=== PATIENT | female | born 1985 | race Caucasian/White ===

== ENCOUNTER 2019-01-20 13:46 | Emergency (ER) | payer OTHER ==
[~2019-01-20] VITALS: Ht 165.1 cm; Wt 75.0 kg
[2019-01-20] MEDS ORDERED: ondansetron/PF 4mg/2ml inj IV ONE (14:05)
[2019-01-20] MEDS ORDERED: normal saline 1000ML IV soln IVB ONE ×2 (14:05→15:55)
[2019-01-20] MEDS ORDERED: ketorolac trometh. 30mg/ml inj. IV ONE (14:05)
[2019-01-20] MEDS ORDERED: morphine 4 MG/ML inj SYRINge IV ONE (14:20)
[2019-01-20 14:22] LABS: BASOPHILS % (AUTO) 0.2 % (0-1); EOSINOPHILS % (AUTO) 0.2 % (0-6); HEMATOCRIT 38.3 % (35.0-45.0); LYMPHOCYTES % (AUTO) 6.1 % (21-51); MEAN CORPUSCULAR HEMOGLOBIN 30.4 PG (27.0-31.0); MEAN CORPUSCULAR HGB CONC 33.8 g/dL (33.0-36.5); MONOCYTES # (AUTO) 1.1 X10'3 (0-0.9); MONOCYTES % (AUTO) 6.7 % (2-12); NEUTROPHILS # (AUTO) 14.7 X10'3 (1.8-7.7); NEUTROPHILS % (AUTO) 86.8 % (42-75); PLATELET COUNT 187 X10'3 (140-440); RED BLOOD COUNT 4.26 X10'6 (4.20-5.60); RED CELL DISTRIBUTION WIDTH 12.6 % (11.5-14.5); WHITE BLOOD COUNT 16.9 X10'3 (4.5-11.0)
[2019-01-20 14:35] LABS: PARTIAL THROMBOPLASTIN TIME 35 SECONDS (22-32)
[2019-01-20 14:45] LABS: ALANINE AMINOTRANSFERASE 18 U/L (12-78); ALBUMIN 3.7 G/DL (3.4-5.0); ALBUMIN/GLOBULIN RATIO 0.9 (1.1-1.5); ALKALINE PHOSPHATASE 73 IU/L (46-116); ANION GAP 12 (8-16); ASPARTATE AMINO TRANSFERASE 15 U/L (10-37); BILIRUBIN,TOTAL 1.4 MG/DL (0.1-1.0); BLOOD UREA NITROGEN 7 MG/DL (7-18); BUN/CREATININE RATIO 7.9 (6.6-38.0); CALCIUM 9.2 MG/DL (8.5-10.1); CHLORIDE 104 MMOL/L (99-107); CREATININE 0.89 MG/DL (0.40-0.90); GLUCOSE 107 MG/DL (70-104); SODIUM 139 MMOL/L (135-145); TOTAL CARBON DIOXIDE 23.5 MMOL/L (24-32); eGFR 74 ML/MIN
[2019-01-20 14:51] LABS: POTASSIUM 3.5 MMOL/L (3.5-5.1)
[2019-01-20 15:16] LABS: CLARITY,URINE CLEAR (Clear); COLOR,URINE YELLOW (Yellow); GLUCOSE, URINE NEGATIVE (Neg); KETONES,URINE 15 mg/dl (Neg); LEUKOCYTE ESTERASE ,URINE LARGE (Neg); NITRITES, URINE POSITIVE (Neg); OCCULT BLOOD,URINE LARGE (Neg); PROTEIN,URINE TRACE mg/dl (Neg); UROBILINOGEN,URINE 0.2 E.U/dL (0.2-1.0)
[2019-01-20 15:24] LABS: UA COLLECTION TYPE CLN CATCH MIDSTREAM
[2019-01-20 15:25] LABS: BACTERIA,URINE 2+ /HPF (Neg); MUCUS STRANDS FEW /LPF (Neg); SQUAMOUS EPITHELIAL CELL,UR MODERATE /LPF (FEW)
[2019-01-20 15:50] LABS: URINE HCG NEGATIVE (NEG)
[2019-01-20] MEDS ORDERED: CefTRIAXone 2gm/D5W 50ml 50 ML IV ONE (15:55)
[2019-01-20 16:15] VITALS: BP 102/54
[2019-01-20] MEDS ORDERED: AMOX-422 PO (16:29)
[2019-01-20] MEDS ORDERED: HYDROcodone/acetaminophen 10/325mg tab PO ONE (16:35)
[2019-01-20] MEDS ORDERED: ONDA4TAB6 PO (16:49)
== END 2019-01-20 17:00 | disposition home or self-care (01) ==
LOC: ER 13:47
DX: N39.0 Urinary tract infection, site not specified (principal); R11.2 Nausea with vomiting, unspecified; Z79.2 Long term (current) use of antibiotics
CPT/HCPCS: 36415; 74176; 80053; 81001; 81025; 83605; 84145; 85025; 85610; 85730; 87040; 87077; 87088; 87186; 96361; 96365; 96375; 99284; J0696; J1885; J2270; J2405; J7030

== ENCOUNTER 2020-12-23 07:06 | Emergency (ER) | payer BC, OTHER ==
[~2020-12-23] VITALS: Ht 165.1 cm; Wt 77.3 kg
[~2020-12-23 07:06] MED LIST: ONDA4TAB6 PO
[2020-12-23] MEDS ORDERED: normal saline 1000ml 1,000 ML IV ONE (07:55)
[2020-12-23] MEDS ORDERED: ketorolac trometh. 30mg/ml inj. IV ONE (07:55)
[2020-12-23] MEDS ORDERED: ketorolac tromethamine 15mg/ml inj. IV ONE (08:00)
--- NOTE | 2020-12-23 08:31 | NUR ---
fresh foods technician at bedside.
[2020-12-23 08:50] LABS: BASOPHILS % (AUTO) 0.8 % (0-1); EOSINOPHILS # (AUTO) 0.3 X10'3 (0-0.9); EOSINOPHILS % (AUTO) 4.6 % (0-6); HEMATOCRIT 38.3 % (35.0-45.0); HEMOGLOBIN 12.6 g/dl (12.0-16.0); LYMPHOCYTES # (AUTO) 2.9 X10'3 (1.1-4.8); LYMPHOCYTES % (AUTO) 47.4 % (21-51); MEAN CORPUSCULAR HEMOGLOBIN 28.6 PG (27.0-31.0); MEAN CORPUSCULAR HGB CONC 32.9 g/dL (33.0-36.5); MEAN CORPUSCULAR VOLUME 87.1 FL (78-98); MEAN PLATELET VOLUME 9.3 FL (7.4-10.4); MONOCYTES # (AUTO) 0.3 X10'3 (0-0.9); NEUTROPHILS # (AUTO) 2.6 X10'3 (1.8-7.7); NEUTROPHILS % (AUTO) 42.2 % (42-75); PLATELET COUNT 205 X10'3 (140-440); RED CELL DISTRIBUTION WIDTH 15.6 % (11.5-14.5); WHITE BLOOD COUNT 6.1 X10'3 (4.5-11.0)
[2020-12-23 08:52] LABS: CLARITY,URINE CLEAR (Clear); COLOR,URINE YELLOW (Yellow); GLUCOSE, URINE NEGATIVE (Neg); KETONES,URINE NEGATIVE (Neg); LEUKOCYTE ESTERASE ,URINE NEGATIVE (Neg); NITRITES, URINE NEGATIVE (Neg); OCCULT BLOOD,URINE TRACE-INTACT (Neg); PROTEIN,URINE NEGATIVE (Neg); UROBILINOGEN,URINE 0.2 E.U/dL (0.2-1.0)
[2020-12-23 09:01] LABS: URINE HCG NEGATIVE (NEG)
[2020-12-23 09:06] LABS: SQUAMOUS EPITHELIAL CELL,UR MANY /LPF (FEW); TRANSITIONAL EPI CELLS,URINE MODERATE /HPF; UA COLLECTION TYPE CLN CATCH MIDSTREAM
[2020-12-23 09:07] LABS: BACTERIA,URINE 1+ /HPF (Neg); RBC,URINE 0-2 /HPF (0-2); WBC,URINE 0-4 /HPF (0-4)
[2020-12-23 09:09] LABS: ALANINE AMINOTRANSFERASE 15 U/L (12-78); ALBUMIN 3.6 G/DL (3.4-5.0); ALKALINE PHOSPHATASE 61 IU/L (46-116); ANION GAP 10 (8-16); ASPARTATE AMINO TRANSFERASE 21 U/L (10-37); BILIRUBIN,TOTAL 0.9 MG/DL (0.1-1.0); BLOOD UREA NITROGEN 8 MG/DL (7-18); BUN/CREATININE RATIO 10.5 (6.6-38.0); CALCIUM 8.3 MG/DL (8.5-10.1); CHLORIDE 103 MMOL/L (99-107); CREATININE 0.76 MG/DL (0.40-0.90); GLUCOSE 84 MG/DL (70-104); LIPASE < 50 U/L (73-393); POTASSIUM 3.4 MMOL/L (3.5-5.1); SODIUM 137 MMOL/L (135-145); TOTAL CARBON DIOXIDE 24.5 MMOL/L (24-32); TOTAL PROTEIN 7.3 G/DL (6.4-8.2); eGFR 88 ML/MIN
[2020-12-23] MEDS ORDERED: LIDO700A32 TOP (09:20)
[2020-12-23] MEDS ORDERED: NAPR-56 PO (09:20)
[2020-12-23] MEDS ORDERED: diazepam inj 5 MG/ML inj. IV ONE (09:30)
--- NOTE | 2020-12-23 09:34 | NUR ---
MELLISSA RN VERIFIED DOSE OF 2.5MG VALIUM.
[2020-12-23 10:33] VITALS: BP 114/75
== END 2020-12-23 10:36 | disposition home or self-care (01) ==
LOC: ER 07:07
DX: R10.84 Generalized abdominal pain (principal); M54.5 Low back pain; Z79.899 Other long term (current) drug therapy
CPT/HCPCS: 36415; 76700; 80053; 81001; 81025; 83690; 85025; 96361; 96374; 96375; 99284; J1885; J3360; J7030